=== PATIENT | male | born 1955 | race Caucasian/White ===

== ENCOUNTER 2023-04-21 08:11 | Outpatient (CLI) | payer MEDICARE, OTHER ==
--- NOTE | 2023-04-21 11:15 | DEXA Report ---
PROCEDURE: Dexa Spine and/or Hip INDICATIONS: [employer] STEROID USE TECHNIQUE: Dual energy x-ray absorptiometry (DXA) was performed on a LifeBook System. Regions measur ed are the AP Spine, femoral neck, and if needed forearm. COMPARISON: None FINDINGS: Lumbar Spine: Bone Mineral Density 1.40 g/cm/cm,T score 1.3. Left Femoral Neck: Bone Mineral Density 0.94 g/cm/cm, T score -1. Left Hip: Bone Mineral Density 0.96 g/cm/cm,T score -1. (T score greater or equal to -1.0: NORMAL) (T score from -1.1 to -2.4: OSTEOPENIA) (T score less than or equal to -2.5 to: OSTEOPOROSIS) Impression: Borderline abnormal low bone mineral density of the left femoral neck and hip. T score is -1. Normal bone mineral density of the lumbar spine. Patients with diagnosis of osteoporosis or osteopenia should have regular bone mineral density assess ment. For those eligible for Medicare, routine testing is allowed once every 2 years. Testing frequ ency can be increased for patients who have rapidly progressing disease or for those who are receivin g medical therapy to restore bone mass. Reviewed by: Lisandro Barr MD on 04/21/2023 11:10 AM PDT Approved by: Lisandro Barr MD on 04/21/2023 11:10 AM PDT Station ID: [id number]
== END 2023-04-21 08:12 | disposition home or self-care (01) ==
LOC: DI 08:11
PROVIDERS: ATTEND Internal Medicine
DX: M85.89 Other specified disorders of bone density and structure, multiple sites (principal); Z79.52 Long term (current) use of systemic steroids